=== PATIENT | female | born 2000 | race Caucasian/White ===

== ENCOUNTER 2023-04-19 19:37 | Emergency (ER) | payer MEDICAID ==
[~2023-04-19] VITALS: Ht 161.3 cm; Wt 47.8 kg
[2023-04-19 20:05] VITALS: BP 103/66; PULSE 88; RESP 17; TEMP 98.1; O2SAT 99
== END 2023-04-19 21:47 ==
LOC: ER 19:37
DX: R10.9 Unspecified abdominal pain (principal); M54.9 Dorsalgia, unspecified; Z53.21 Procedure and treatment not carried out due to patient leaving prior to being seen by health care provider
CPT/HCPCS: 99281